=== PATIENT | female | born 1965 ===

== ENCOUNTER 2020-06-02 15:47 | Emergency (ER) | payer OTHER ==
[~2020-06-02] VITALS: Ht 160 cm; Wt 65.8 kg
[2020-06-02] MEDS ORDERED: HUMIRA40 MG/0.2 (16:03)
== END 2020-06-02 20:12 | disposition home or self-care (01) ==
LOC: ER 15:47
DX: S00.211A Abrasion of right eyelid and periocular area, initial encounter (principal); H57.11 Ocular pain, right eye; X58.XXXA Exposure to other specified factors, initial encounter; Y93.89 Activity, other specified; Y92.89 Other specified places as the place of occurrence of the external cause; Y99.8 Other external cause status